=== PATIENT | male | born 1985 | race African-American/Black ===

== ENCOUNTER 2023-10-29 21:05 | Emergency (ER) | payer SELFPAY ==
[~2023-10-29] VITALS: Ht 185.4 cm; Wt 98.0 kg
[2023-10-29 21:22] VITALS: BP 126/82; PULSE 79; RESP 18; TEMP 98; O2SAT 98
[2023-10-30] MEDS: AMOXICILLIN 500 MG CAPSULE PO NR (01:52)
[2023-10-30] MEDS ORDERED: NAPR-681 MT (02:00)
[2023-10-30] MEDS ORDERED: AMOX500T2 MT (02:00)
== END 2023-10-30 04:23 | disposition home or self-care (01) ==
LOC: ER 21:39
DX: M54.9 Dorsalgia, unspecified (principal); K02.9 Dental caries, unspecified
CPT/HCPCS: 99283; 71045; Z7610